=== PATIENT | female | born 1945 | race Caucasian/White ===

== ENCOUNTER → 2018-12-20 | Outpatient (CLI) | payer MEDICARE ==
--- NOTE | 2018-12-20 16:40 | XR ---
EXAMINATION TYPE: XR chest 2V DATE OF EXAM: 12/20/2018 COMPARISON: NONE HISTORY: Colon carcinoma, fever, breast carcinoma TECHNIQUE: Frontal and lateral views of the chest are obtained. FINDINGS: Port-A-Cath is present in the left pectoral region, distal tip is overlying the region of the left innominate vein. No pneumothorax. Right hemidiaphragm is elevated. Surgical clips present ov er the right chest. There is blunting the left costophrenic angle, obscured left hemidiaphragm. Heart size is likely normal. Aorta is dense. IMPRESSION: Correlate for possible left lower lobe pneumonia, there may be small associated effusion . A [place] level critical message alert has been initiated for [facility] via the [employer]de Results System on 12/20/2018 4:37 PM. This message alert has been sent to [facility] via the [employer] ences provided by the clinician for the receipt of Radiology Critical Findings. Message ID [id number].
== END | disposition home or self-care (01) ==
LOC: RADXRMAIN 14:30
PROVIDERS: ATTEND Internal Medicine Hematology & Oncology
DX: C18.4 Malignant neoplasm of transverse colon (principal); I10 Essential (primary) hypertension; E78.00 Pure hypercholesterolemia, unspecified; Z85.3 Personal history of malignant neoplasm of breast
CPT/HCPCS: 71046